=== PATIENT | female | born 2000 | race African-American/Black ===

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

== ENCOUNTER 2021-05-14 11:26 | Emergency (ER) | payer SELFPAY ==
[2021-05-14 21:34] LABS: SARS-CoV-2 PCR by NAA DETECTED (NotDetected)
== END 2021-05-14 12:52 | disposition home or self-care (01) ==
LOC: ERS 11:26
DX: U07.1 COVID-19 (principal); E11.9 Type 2 diabetes mellitus without complications; Z79.4 Long term (current) use of insulin
CPT/HCPCS: 87804; 99283; U0003; U0005

== ENCOUNTER 2021-07-25 13:28 | Emergency (ER) | payer MEDICAID, OTHER, SELFPAY ==
[2021-07-25 15:07] LABS: Bacteria/HPF None Seen HPF (None Seen); Bilirubin Negative (Negative); Blood, Urine Negative (Negative); Clarity Clear (Clear); Glucose, Urine (Dipstick) Normal (Negative); Ketone, Urine Negative (Negative); Leukocyte 250 Leu/uL (Negative); Nitrite Negative (Negative); Protein, Urine (Dipstick) Negative (Neg-Trace); RBC/HPF 0-3 HPF (0-3); Specific Gravity, Urine 1.019 (1.002-1.036); Squamous Epithelial 0-3 HPF (0-3); WBC/HPF 0-3 HPF (0-3)
[2021-07-25 15:15] LABS: #Basophils 0.1 thou/uL (0.0-0.2); #Eosinphils 0.3 thou/uL (0.0-0.7); #Lymphocytes 4.2 thou/uL (1.20-3.40); #Monocytes 1.1 thou/uL (0.11-0.59); #Neutrophils 12.1 thou/uL (1.40-6.50); %Basophils 0.7 % (0.0-1.0); %Eosinophils 1.5 % (0.0-10.0); %Lymphocytes 23.6 % (21.0-51.0); %Monocytes 6.4 % (0.0-10.0); %Neutrophils 67.9 % (42.0-75.0); Hemoglobin 14.1 g/dL (12.0-16.0); Mean Corpuscular HGB CONC 33.8 g/dL (32.0-36.0); Mean Corpuscular Hemoglobin 31.2 pg (27.0-31.0); Mean Corpuscular Volume 92.4 fL (78.0-98.0); Mean Platelet Volume 7.9 fL (7.4-10.4); Platelet Count 416 thou/uL (130-400); RBC Distribution Width 11.7 % (11.5-14.5); Red Blood Cell (RBC) Count 4.51 mill/uL (4.20-5.40); White Blood Cell (WBC) Count 17.9 thou/uL (4.8-10.8)
== END 2021-07-25 16:50 | disposition home or self-care (01) ==
LOC: ERS 13:28
DX: O20.0 Threatened abortion (principal); O24.011 Pre-existing type 1 diabetes mellitus, in pregnancy, first trimester; E10.9 Type 1 diabetes mellitus without complications; Z79.4 Long term (current) use of insulin; Z3A.01 Less than 8 weeks gestation of pregnancy
CPT/HCPCS: 36415; 76856; 81003; 81015; 84702; 85025; 86900; 86901

== ENCOUNTER 2021-07-31 22:46 | Emergency (ER) | payer MEDICAID | END 2021-07-31 23:45 | disposition left against medical advice (07) | LOC: ERS 22:46 | DX: Z53.21 Procedure and treatment not carried out due to patient leaving prior to being seen by health care provider (principal) ==

== ENCOUNTER 2021-10-17 22:50 | Emergency (ER) | payer OTHER ==
[2021-10-17 23:11] LABS: #Eosinphils 0.1 thou/uL (0.0-0.7); #Lymphocytes 2.7 thou/uL (1.20-3.40); #Monocytes 1.1 thou/uL (0.11-0.59); #Neutrophils 15.2 thou/uL (1.40-6.50); %Basophils 0.1 % (0.0-1.0); %Eosinophils 0.6 % (0.0-10.0); %Lymphocytes 14.1 % (21.0-51.0); %Monocytes 5.6 % (0.0-10.0); %Neutrophils 79.6 % (42.0-75.0); Hemoglobin 12.5 g/dL (12.0-16.0); Mean Corpuscular HGB CONC 33.9 g/dL (32.0-36.0); Mean Corpuscular Hemoglobin 31.9 pg (27.0-31.0); Mean Corpuscular Volume 94.1 fL (78.0-98.0); Mean Platelet Volume 7.7 fL (7.4-10.4); Platelet Count 363 thou/uL (130-400); RBC Distribution Width 12.3 % (11.5-14.5); Red Blood Cell (RBC) Count 3.93 mill/uL (4.20-5.40); White Blood Cell (WBC) Count 19.1 thou/uL (4.8-10.8)
[2021-10-17 23:14] LABS: BHCG - Serum POSITIVE (NEGATIVE); Pregs Control Background? CLEAR/WHITE (CLR/WHITE); Pregs Control Bar Appear? YES (CONTROL BAR)
[2021-10-17 23:33] LABS: ALT (SGPT) 8 U/L (8-55); AST (SGOT) 11 U/L (5-34); Albumin 3.6 g/dL (3.5-5.0); Alkaline Phosphatase 72 U/L (40-110); Anion Gap 12 mmol/L (10-20); BUN (Urea Nitrogen) 6 mg/dL (7.0-18.7); Bilirubin, Total 0.3 mg/dL (0.2-1.2); Calc. Creatinine Clearance 0 mL/min (70-130); Calcium 9.8 mg/dL (7.8-10.44); Carbon Dioxide 24 mmol/L (22-29); Chloride 106 mmol/L (98-107); Globulin 3.5 g/dL (2.4-3.5); Glucose 152 mg/dL (70-105); Lipase 11 U/L (8-78); Potassium 4.4 mmol/L (3.5-5.1); Protein, Total 7.1 g/dL (6.0-8.3); Sodium 138 mmol/L (136-145)
[2021-10-18] MEDS ORDERED: Lidocaine Viscous Sol 2% 15 ml UD Cup ONE (00:01)
[2021-10-18] MEDS ORDERED: Mag-Al 1200 mg/1200 mg/30 ML UDCUP ONE (00:01)
[2021-10-18 00:41] LABS: Bacteria/HPF None Seen HPF (None Seen); Bilirubin Negative (Negative); Blood, Urine Negative (Negative); Clarity Turbid (Clear); Glucose, Urine (Dipstick) Normal (Negative); Ketone, Urine Negative (Negative); Leukocyte 75 Leu/uL (Negative); Mucous/LPF Rare LPF (<2+); Nitrite Negative (Negative); Protein, Urine (Dipstick) 10 mg/dL (Neg-Trace); RBC/HPF 0-3 HPF (0-3); Specific Gravity, Urine 1.023 (1.002-1.036); Squamous Epithelial 0-3 HPF (0-3); pH, Urine 6.5 (5.0-9.0)
== END 2021-10-18 01:07 | disposition home or self-care (01) ==
LOC: ERS 22:50
DX: N39.0 Urinary tract infection, site not specified (principal); R07.89 Other chest pain; R00.0 Tachycardia, unspecified; E11.9 Type 2 diabetes mellitus without complications; Z79.4 Long term (current) use of insulin
CPT/HCPCS: 36415; 71045; 80053; 81003; 81015; 83690; 84703; 85025; 93005

== ENCOUNTER 2022-01-14 10:06 | Emergency (ER) | payer OTHER ==
[2022-01-14 11:56] LABS: #Eosinphils 0.2 thou/uL (0.0-0.7); #Lymphocytes 1.9 thou/uL (1.20-3.40); #Monocytes 0.7 thou/uL (0.11-0.59); #Neutrophils 8.4 thou/uL (1.40-6.50); %Basophils 0.3 % (0.0-1.0); %Eosinophils 1.5 % (0.0-10.0); %Lymphocytes 16.9 % (21.0-51.0); %Monocytes 5.9 % (0.0-10.0); %Neutrophils 75.4 % (42.0-75.0); Hemoglobin 11.3 g/dL (12.0-16.0); Mean Corpuscular HGB CONC 33.9 g/dL (32.0-36.0); Mean Corpuscular Hemoglobin 30.7 pg (27.0-31.0); Mean Corpuscular Volume 90.6 fL (78.0-98.0); Mean Platelet Volume 7.7 fL (7.4-10.4); Platelet Count 351 thou/uL (130-400); RBC Distribution Width 12.2 % (11.5-14.5); Red Blood Cell (RBC) Count 3.67 mill/uL (4.20-5.40); White Blood Cell (WBC) Count 11.2 thou/uL (4.8-10.8)
[2022-01-14 12:29] LABS: ALT (SGPT) 10 U/L (8-55); AST (SGOT) 11 U/L (5-34); Albumin 2.9 g/dL (3.5-5.0); Alkaline Phosphatase 89 U/L (40-110); Anion Gap 11 mmol/L (10-20); BUN (Urea Nitrogen) 5 mg/dL (7.0-18.7); Bilirubin, Total 0.3 mg/dL (0.2-1.2); Calc. Creatinine Clearance 0 mL/min (70-130); Calcium 8.1 mg/dL (7.8-10.44); Carbon Dioxide 19 mmol/L (22-29); Estimated GFR 134; Glucose 117 mg/dL (70-105); Potassium 3.8 mmol/L (3.5-5.1); Protein, Total 5.9 g/dL (6.0-8.3); Sodium 134 mmol/L (136-145)
[2022-01-14 12:33] LABS: Bacteria/HPF 1+ HPF (None Seen); Bilirubin Negative (Negative); Blood, Urine Negative (Negative); Clarity Clear (Clear); Glucose, Urine (Dipstick) Normal (Negative); Ketone, Urine Negative (Negative); Leukocyte 500 Leu/uL (Negative); Nitrite Negative (Negative); Protein, Urine (Dipstick) Negative (Neg-Trace); RBC/HPF 0-3 HPF (0-3); Specific Gravity, Urine 1.012 (1.002-1.036); Urobilinogen Normal mg/dL (Less than 2); WBC/HPF 0-3 HPF (0-3); pH, Urine 7.5 (5.0-9.0)
[2022-01-14 13:03] LABS: Chloride 108 mmol/L (98-107)
== END 2022-01-14 13:37 | disposition home or self-care (01) ==
LOC: ERS 10:06
DX: O99.891 Other specified diseases and conditions complicating pregnancy (principal); R10.9 Unspecified abdominal pain; Z3A.31 31 weeks gestation of pregnancy; O24.913 Unspecified diabetes mellitus in pregnancy, third trimester; Z79.4 Long term (current) use of insulin
CPT/HCPCS: 36415; 80053; 81003; 81015; 85025; 96360

== ENCOUNTER 2022-12-07 12:33 | Emergency (ER) | payer OTHER ==
[2022-12-07] MEDS ORDERED: Ketorolac Tromethamine 30 MG/ML VIAL ONE (12:52)
== END 2022-12-07 13:16 | disposition home or self-care (01) ==
LOC: ERS 12:33
DX: M25.521 Pain in right elbow (principal); E11.9 Type 2 diabetes mellitus without complications; Z79.4 Long term (current) use of insulin
CPT/HCPCS: 96372; J1885

== ENCOUNTER 2023-06-16 20:27 | Emergency (ER) | payer OTHER, SELFPAY ==
[2023-06-16] MEDS ORDERED: Ketorolac Tromethamine 30 MG (1 mL) VIAL ONE (21:18)
[2023-06-16 21:45] LABS: SARS-CoV-2 NAA Rapid Test Not Detected (NotDetected)
== END 2023-06-16 22:26 | disposition home or self-care (01) ==
LOC: ERS 20:27
DX: J06.9 Acute upper respiratory infection, unspecified (principal); E11.9 Type 2 diabetes mellitus without complications; Z79.4 Long term (current) use of insulin
CPT/HCPCS: 96361; 96374; J1885

== ENCOUNTER 2023-09-23 23:38 | Emergency (ER) | payer SELFPAY ==
[2023-09-24 00:54] LABS: #Basophils 0.07 10x3/uL (0.0-0.2); %Basophils 0.6 % (0.0-1.0); %Lymphocytes 33.6 % (21.0-51.0); %Monocytes 6.2 % (0.0-10.0); %Neutrophils 58.4 % (42.0-75.0); Hematocrit 40.4 % (36.0-47.0); Hemoglobin 14.2 g/dL (12.0-16.0); Mean Corpuscular HGB CONC 35.1 g/dL (32.0-36.0); Mean Corpuscular Hemoglobin 30.2 pg (27.0-31.0); Mean Platelet Volume 10.6 fL (7.4-10.4); Platelet Count 460 10x3/uL (130-400); RBC Distribution Width 12.5 % (11.5-14.5)
[2023-09-24 01:12] LABS: BHCG - Serum POSITIVE (NEGATIVE); Pregs Control Background? CLEAR/WHITE (CLR/WHITE); Pregs Control Bar Appear? YES (CONTROL BAR)
[2023-09-24 01:17] LABS: ALT (SGPT) 45 U/L (8-55); AST (SGOT) 30 U/L (5-34); Albumin 3.8 g/dL (3.5-5.0); Alkaline Phosphatase 120 U/L (40-110); Anion Gap 15 mmol/L (10-20); BUN (Urea Nitrogen) 12 mg/dL (7.0-18.7); Bilirubin, Total 0.3 mg/dL (0.2-1.2); Calc. Creatinine Clearance 0 mL/min (70-130); Calcium 9.9 mg/dL (7.8-10.44); Carbon Dioxide 20 mmol/L (22-29); Chloride 103 mmol/L (98-107); Estimated GFR 126; Globulin 3.2 g/dL (2.4-3.5); Glucose 358 mg/dL (70-105); Potassium 3.9 mmol/L (3.5-5.1); Sodium 134 mmol/L (136-145)
== END 2023-09-24 02:30 | disposition home or self-care (01) ==
LOC: ERS 23:38
DX: O20.0 Threatened abortion (principal); O24.419 Gestational diabetes mellitus in pregnancy, unspecified control; Z3A.01 Less than 8 weeks gestation of pregnancy; Z79.4 Long term (current) use of insulin
CPT/HCPCS: 36415; 80053; 84702; 84703; 85025; 86850; 86870; 86900; 86901; 99284